=== PATIENT | female | born 1950 | race Caucasian/White ===

== ENCOUNTER → 2016-10-22 | Outpatient (CLI) | payer MEDICARE, OTHER ==
[~2016-10-22] MED LIST: ASA CHILDREN'S81 MG PO; CALTRATE-600 W600 MG PO; COLACE-DPS100 MG PO; NORCO 5-325 TA1 EACH PO; STOOL SOFTENER1 EACH PO
--- NOTE | ~2016-10-22 | ECH ---
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 Summary Technically adequate exam. The estimated left ventricular ejection fraction is 60-65%. Mild to moderate concentric left ventricular hypertrophy. Diastolic assessment reveals Grade I diastolic dysfunction. The left atrium is mildly dilated by LA volume index measurement. Bubble study was done, there is no evidence for a PFO or ASD. Mild mitral regurgitation by color Doppler. Mild tricuspid regurgitation by color Doppler. Recommendation The patient will be given the results of this study by the physician who ordered the exam. Procedure Type of Study TTE procedure:Echo Complete SF. Procedure Date Date: 10/22/2016 Start: 09:09 AM Technical Quality: Adequate visualization Indications:TIA. Appropriate Use Criteria: 9 Contrast Medium: Bubble Study. Height: 66 inches Weight: 172 pounds BSA: 1.88 m Rhythm: Within normal limits HR: 62 bpm BP: 102/56 mmHg M-Mode/2D Measurements LV Diastolic Dimension: 4.26 cm LV Systolic Dimension: 2.52 cm LV Septum Diastolic: 1.25 cm LV PW Diastolic: 1.24 cm AO Root Dimension: 3.38 cm Cardiac Output: 3.26 l/min LA Dimension: 3.45 cm Cardiac Index: 1.73 l/min*m RV Diastolic Dimension: 3.26 cm LA volume index: 39 ml/m LVOT: 2.3 cm LVOT VTI: 12.67 cm RV Base: 2.2 cm LV Stroke volume: 52.61 ml RV Mid: 1.5 cm LV Stroke volume index: 27.98 ml/m RV Length: 5.3 cm TAPSE: 2.2 cm TDI-S': 10 cm/s Doppler Measurements AV Peak Velocity: 1 m/s MV Peak E-Wave: 0.48 m/s AV Peak Gradient: 4 mmHg MV Peak A-Wave: 0.6 m/s AV Mean Gradient: 1.79 mmHg MV E/A Ratio: 0.79 LVOT Peak Velocity: 0.78 m/s MV P1/2t: 114.8 msec AV Area (Continuity):3.14 cm MV Deceleration Time: 422.7 msec TR Velocity:2.02 m/s MV Area (PHT): 1.92 cm TR Gradient:16.33 mmHg Estimated RAP:3 mmHg Estimated PASP: 19.33 mmHg Estimated RVSP: 19 mmHg A' Septal Velocity: 0.12 m/s E' Septal Velocity: 0.08 m/s A' Lateral Velocity: 0.11 m/s E' Lateral Velocity: 0.07 m/s RA Area: 12.51 cm Findings Left Ventricle The left ventricle is normal in size . Mild to moderate concentric left ventricular hypertrophy. Diastolic assessment reveals Grade I diastolic dysfunction. Right Ventricle Normal right ventricle structure and function. Left Atrium The left atrium is mildly dilated by LA volume index measurement. Bubble study was done, there is no evidence for a PFO or ASD. Right Atrium Normal right atrial size. Mitral Valve Normal mitral valve structure and function. Mild mitral regurgitation by color Doppler. Aortic Valve The aortic valve is mildly sclerotic. Tricuspid Valve Normal tricuspid valve structure and function. Mild tricuspid regurgitation by color Doppler. Pulmonic Valve The pulmonic valve is not well visualized. Pericardial Effusion No evidence of pericardial effusion. Miscellaneous Visualized portions of the aortic root and ascending aorta appear normal in size. Pleural Effusion No evidence of pleural effusion. Contractility Score LV regional wall motion:(0-Non visualized 1-Normal 2-Hypokinesis 3-Akinesis 4-Dyskinesis 5-Aneurysm) Signature
== END | disposition home or self-care (01) ==
LOC: CARD 08:43
DX: G45.9 Transient cerebral ischemic attack, unspecified (principal); I65.22 Occlusion and stenosis of left carotid artery; I51.7 Cardiomegaly; I34.0 Nonrheumatic mitral (valve) insufficiency; I07.1 Rheumatic tricuspid insufficiency

== ENCOUNTER → 2016-10-29 | Outpatient (CLI) | payer MEDICARE | END | disposition home or self-care (01) | LOC: RAD.S 09:27 | DX: Z12.31 Encounter for screening mammogram for malignant neoplasm of breast (principal); G45.9 Transient cerebral ischemic attack, unspecified; N63 Unspecified lump in breast ==

== ENCOUNTER → 2016-11-05 | Outpatient (CLI) | payer MEDICARE, OTHER | END | disposition home or self-care (01) | LOC: RAD.S 10-29 14:23 | DX: R92.8 Other abnormal and inconclusive findings on diagnostic imaging of breast (principal); N63 Unspecified lump in breast ==

== ENCOUNTER → 2016-11-09 | Outpatient (CLI) | payer MEDICARE, OTHER | END | disposition home or self-care (01) | LOC: RAD.S 09:15 | PROC: 0HBU3ZX Excision of Left Breast, Percutaneous Approach, Diagnostic (ICD-10-PCS; principal; 2016-11-09) | DX: C50.912 Malignant neoplasm of unspecified site of left female breast (principal); Z17.0 Estrogen receptor positive status [ER+] ==